=== PATIENT | male | born 1980 | race Caucasian/White ===

== ENCOUNTER 2024-07-20 14:26 | Emergency (ER) | payer SELFPAY ==
[2024-07-20] MEDS ORDERED: Ondansetron PF 4 MG/2 ML Vial ONE (14:52)
[2024-07-20] MEDS ORDERED: Lorazepam 2 MG/ML VIAL ONE ×2 (14:52→17:12)
[2024-07-20] MEDS ORDERED: Pantoprazole 40 MG VIAL ONE (15:31)
[2024-07-20 15:40] LABS: Hematocrit 56.6 % (42.0-52.0); Hemoglobin 18.9 g/dL (14.0-18.0); Mean Corpuscular HGB CONC 33.4 g/dL (32.0-36.0); Mean Corpuscular Hemoglobin 33.7 pg (27.0-31.0); Mean Platelet Volume 6.2 fL (7.4-10.4); Platelet Count 361 10x3/uL (130-400); RBC Distribution Width 15.6 % (11.5-14.5); White Blood Cell (WBC) Count 20.9 10x3/uL (4.8-10.8)
[2024-07-20 15:50] LABS: Troponin I 0.019 ng/mL (< 0.028)
[2024-07-20 15:51] LABS: ALT (SGPT) 59 U/L (8-55); AST (SGOT) 66 U/L (5-34); Albumin 4.4 g/dL (3.5-5.0); Alkaline Phosphatase 129 U/L (40-110); Anion Gap 36 mmol/L (10-20); BUN (Urea Nitrogen) 15 mg/dL (8.9-20.6); Bilirubin, Total 2.9 mg/dL (0.2-1.2); Calc. Creatinine Clearance 0 mL/min (70-130); Carbon Dioxide 22 mmol/L (22-29); Chloride 83 mmol/L (98-107); Estimated GFR 21; Globulin 4.3 g/dL (2.4-3.5); Glucose 189 mg/dL (70-105); Lipase 17 U/L (8-78); Magnesium 1.1 mg/dL (1.6-2.6); Potassium 2.9 mmol/L (3.5-5.1); Protein, Total 8.7 g/dL (6.0-8.3); Sodium 138 mmol/L (136-145)
[2024-07-20] MEDS ORDERED: Mag-Al 1200 mg/1200 mg/30 ML UDCUP ONE (15:53)
[2024-07-20] MEDS ORDERED: Lidocaine Viscous Sol 2% 15 ml UD Cup ONE (15:53)
[2024-07-20 16:01] LABS: Band 17 % (5-11); Lymphocytes 7 % (21-51); MDiff Complete? YES; Monocytes 8 % (0-10); Neutrophil 68 % (42-75); Platelet Adequacy Comment Appears Adequate
[2024-07-20] MEDS ORDERED: Magnesium 2 GM/50 ML BAG (IN WATER) ONE (16:19)
[2024-07-20] MEDS ORDERED: Potassium Chloride 20 MEQ TAB ONE (16:20)
[2024-07-20] MEDS ORDERED: Potassium Bicarbonate/Cit Ac 20 MEQ TAB ONE (16:22)
[2024-07-20] MEDS ORDERED: Potassium Chloride 20 MEQ (100 mL) BAG ONE (17:29)
[2024-07-20] MEDS ORDERED: fentaNYL 50 mcg/mL 1 mL Vial ONE (17:44)
== END 2024-07-20 19:30 | disposition short-term general hospital (02) ==
LOC: BURERS 14:26
DX: N17.9 Acute kidney failure, unspecified (principal); E87.6 Hypokalemia; E83.42 Hypomagnesemia; D72.829 Elevated white blood cell count, unspecified; F10.239 Alcohol dependence with withdrawal, unspecified; F17.210 Nicotine dependence, cigarettes, uncomplicated
CPT/HCPCS: 80053; 83690; 83735; 84484; 85025; 93005; 96361; 96374; 96375; 96376; J2060; J2405; J2470; J3010; J3475; J3480